=== PATIENT | male | born 1965 ===

== ENCOUNTER 2017-09-12 08:01 | Emergency (ER) | payer OTHER, SELFPAY ==
[2017-09-12 08:07] VITALS: BMI 27.8
--- NOTE | 2017-09-12 09:39 | ED PDOC ---
HPI: CCC, URI, Sore Throat Time Seen by Provider: 09/12/17 08:48 Chief Complaint (Nursing): Flu-like Symptoms Chief Complaint (Provider): Flu-like symptoms History Per: Patient History/Exam Limitations: no limitations Onset/Duration Of Symptoms: Days (x3) Current Symptoms Are (Timing): Still Present Location Of Pain: Headache Associated Symptoms: Fever, Cough, Other (eye pain, body aches, runny nose) Ear Symptoms: Bilateral: None Additional Complaint(s): Neymar Cuello is a 51 year old male, with no significant past medical history, who presents to the emergency department complaining of fever, headache , eye pain, cough, runny nose and body aches onset for x3 days. Patient took Tylenol but with no relief of symptoms. He denies any nausea, vomit, diarrhea, abdominal pain, chest pain, or shortness of breath. No further medical complaints Headaches is frontal and gradual onset. Not worst in his life. Is a mild ache. No numbness, tingles. PMD: None provided. Past Medical History Reviewed: Historical Data, Nursing Documentation, Vital Signs Vital Signs: Last Vital Signs Temp 101 F H 09/12/17 08:05 Pulse 108 H 09/12/17 08:05 Resp BP 131/84 09/12/17 08:05 Pulse Ox 96 09/12/17 09:42 - Medical History PMH: Arthritis, Hypercholesterolemia, Chronic Pain - Surgical History Surgical History: No Surg Hx - Family History Family History: States: Unknown Family Hx - Social History Current smoker - smoking cessation education provided: No Alcohol: Social Drugs: Denies - Immunization History Hx Tetanus Toxoid Vaccination: No Hx Influenza Vaccination: No Hx Pneumococcal Vaccination: No - Home Medications Home Medications: Ambulatory Orders Medication Instructions Recorded Ibuprofen 600 mg PO TID #20 tab 07/08/14 Methocarbamol [Robaxin] 1,000 mg PO TID #20 tab 07/08/14 Cyclobenzaprine [Cyclobenzaprine 10 mg PO BID #14 tab 05/15/16 HCl] Ibuprofen [Motrin Tab] 800 mg PO BID #0 tab 05/15/16 Naproxen [Naprosyn Tab] 1 tab PO TID PRN #21 tab 06/17/16 Ibuprofen [Motrin] 600 mg PO TID 7 Days tab 02/15/18 Oseltamivir Phosphate [Tamiflu] 75 mg PO BID 5 Days capsule 09/12/17 - Allergies Allergies/Adverse Reactions: Allergies Allergy/AdvReac Type Severity Reaction Status Date / Time No Known Allergies Allergy Verified 08/07/16 18:11 Review of Systems ROS Statement: Except As Marked, All Systems Reviewed And Found Negative Constitutional: Positive for: Fever, Other (body aches) Eyes: Positive for: Pain ENT: Positive for: Nose Discharge Cardiovascular: Negative for: Chest Pain Respiratory: Positive for: Cough. Negative for: Shortness of Breath Gastrointestinal: Negative for: Nausea, Vomiting, Abdominal Pain, Diarrhea Neurological: Positive for: Headache Physical Exam - Reviewed Nursing Documentation Reviewed: Yes Vital Signs Reviewed: Yes - Physical Exam Appears: Positive for: Non-toxic, No Acute Distress Head Exam: Positive for: ATRAUMATIC, NORMAL INSPECTION, NORMOCEPHALIC Skin: Positive for: Normal Color, Warm, Dry Eye Exam: Positive for: Normal appearance, EOMI, PERRL ENT: Positive for: Nasal Congestion. Negative for: Pharyngeal Erythema, Tonsillar Exudate Neck: Positive for: Normal, Painless ROM, Supple Cardiovascular/Chest: Positive for: Regular Rate, Rhythm. Negative for: Murmur Respiratory: Positive for: Normal Breath Sounds (clear b/l). Negative for: Respiratory Distress Gastrointestinal/Abdominal: Positive for: Normal Exam, Soft. Negative for: Tenderness, Guarding, Rebound Back: Positive for: Normal Inspection. Negative for: L CVA Tenderness, R CVA Tenderness, Vertebral Tenderness Extremity: Positive for: Normal ROM. Negative for: Tenderness, Deformity, Swelling Neurologic/Psych: Positive for: Alert, Oriented. Negative for: Motor/Sensory Deficits - ECG O2 Sat by Pulse Oximetry: 96 (RA) Pulse Ox Interpretation: Normal - Progress ED Course And Treament: 1058: AAOx3. Pain free. Tolerated po. Fu with pcp. Will tx for flu like symptoms. Medical Decision Making Medical Decision Making: Initial Impression: Viral syndrome Initial Plan: --Motrin tab 600 mg PO --Tessalon Perles 100 mg PO --Reevaluation Scribe Attestation: Documented by Kiran Case, acting as a scribe for Eren Oliver MD Provider Scribe Attestation: All medical record entries made by the Scribe were at my direction and personally dictated by me. I have reviewed the chart and agree that the record accurately reflects my personal performance of the history, physical exam, medical decision making, and the department course for this patient. I have also personally directed, reviewed, and agree with the discharge instructions and disposition. Disposition - Clinical Impression Clinical Impression: Influenza-like symptoms - Patient ED Disposition Is Patient to be Admitted: No Counseled Patient/Family Regarding: Diagnosis, Need For Followup, Rx Given - Disposition Referrals: [facility] [Outside] - 09/16/17 Disposition: Routine/Home Disposition Time: 11:00 Condition: STABLE Additional Instructions: Return if not better in 3 days. Prescriptions: Ibuprofen [Motrin] 600 mg PO TID 7 Days tab Oseltamivir Phosphate [Tamiflu] 75 mg PO BID 5 Days capsule Instructions: Influenza (ED) Print Language: [id number]
[2017-09-12 11:49] VITALS: BP 128/78; PULSE 87; RESP 19; TEMP 98.6; O2SAT 98
== END 2017-09-12 11:49 | disposition home or self-care (01) ==
LOC: H.ER 08:01
DX: J11.1 Influenza due to unidentified influenza virus with other respiratory manifestations (principal); E78.00 Pure hypercholesterolemia, unspecified; G89.29 Other chronic pain